=== PATIENT | female | born 1975 | race Caucasian/White ===

== ENCOUNTER 2017-05-22 09:25 | Emergency (ER) | payer OTHER ==
[2017-05-22 09:51] VITALS: BP 142/85; PULSE 75; TEMP 98; BMI 36.3
--- NOTE | 2017-05-22 10:10 | PDOC ---
History of Present Illness - General Chief Complaint: Laceration Stated Complaint: RIGHT THUMB LACERATION Time Seen by Provider: 05/22/17 09:27 - History of Present Illness Initial Comments: 05/22/17 11:45 Chief complaint: Laceration History of present illness: Patient cut her right hand last night on a glass picture frame. There was bleeding, which she controlled with "crazy glue" which she applied herself at home. There is mild pain and swelling now and she is concerned regarding a foreign body Review of systems: No distal numbness tingling pain or weakness of the hand or fingers. No drainage from the wound Social/family history reviewed and noncontributory Physical exam: Alert oriented well-developed well-nourished no acute distress cooperative Afebrile vital signs normal Right hand: There is a healing laceration approximately 1 cm over the palm in the area of the thenar eminence. There is no sign of infection. There is no erythema, induration, warmth, drainage, swelling, or palpable mass in or around the wound. Capillary refill is intact. No distal sensory deficits. Pulses full Impression: Superficial laceration Plan: X-ray is negative for foreign body. Crazy glue was peeled off, the wound was thoroughly scrubbed and irrigated, bacitracin was applied along with a dressing. There was no bleeding and the patient was comfortable upon discharge. She states that she had a tetanus booster last January. Past History - Past Medical History Allergies/Adverse Reactions: Allergies Allergy/AdvReac Type Severity Reaction Status Date / Time Penicillins Allergy Intermediate Rash Verified 05/22/17 09:43 levofloxacin [From Levaquin] AdvReac Severe Difficulty Verified 05/22/17 09:43 Breathing Home Medications: Ambulatory Orders Levothyroxine [Synthroid -] 50 mcg PO DAILY 05/22/17 COPD: No GI Disorders: Yes (IBS) Thyroid Disease: Yes (HYPO) - Suicide/Smoking/Psychosocial Hx Smoking History: Former smoker Have you smoked in the past 12 months: No If you are a former smoker, when did you quit?: 20 years ago Information on smoking cessation initiated: No Hx Alcohol Use: No Drug/Substance Use Hx: No Substance Use Type: None *Physical Exam - Vital Signs Last Vital Signs Temp Pulse Resp BP Pulse Ox 98 F 75 18 142/85 99 05/22/17 09:25 05/22/17 09:25 05/22/17 09:25 05/22/17 09:25 05/22/17 09:25 ED Treatment Course - RADIOLOGY Radiology Studies Ordered: Category Date Time Status HAND- RIGHT [RAD] Stat Radiology 05/22/17 09:48 Ordered *DC/Admit/Observation/Transfer Diagnosis at time of Disposition: Laceration - Discharge Dispostion Disposition: HOME Condition at time of disposition: Improved Admit: No - Referrals - Patient Instructions Printed Discharge Instructions: DI for Open Laceration Additional Instructions: Keep clean and dry recheck immediately if signs of infection keep covered and dressed daily with bacitracin. - Post Discharge Activity
== END 2017-05-22 10:37 | disposition home or self-care (01) ==
LOC: FER 09:25
DX: S61.411A Laceration without foreign body of right hand, initial encounter (principal); W25.XXXA Contact with sharp glass, initial encounter; Y93.89 Activity, other specified; Y92.009 Unspecified place in unspecified non-institutional (private) residence as the place of occurrence of the external cause; Z87.891 Personal history of nicotine dependence; E03.9 Hypothyroidism, unspecified; K58.9 Irritable bowel syndrome, unspecified
CPT/HCPCS: 73130-TC-RT; 99282-25